=== PATIENT | female | born 1975 | race Caucasian/White ===

== ENCOUNTER → 2017-12-01 | Outpatient (CLI) | payer BC | END | disposition home or self-care (01) | LOC: EDSTATUS 08:45 → CFH 12:37 | PROVIDERS: ATTEND Obstetrics & Gynecology | DX: Z12.31 Encounter for screening mammogram for malignant neoplasm of breast (principal) | CPT/HCPCS: 77067 ==

== ENCOUNTER → 2017-12-14 | Outpatient (CLI) | payer BC | END | disposition home or self-care (01) | LOC: RAD 08:41 | PROVIDERS: ATTEND Obstetrics & Gynecology | DX: N97.9 Female infertility, unspecified (principal) | CPT/HCPCS: 74740 ==